=== PATIENT | male | born 1985 | race Caucasian/White ===

== ENCOUNTER 2024-12-24 10:29 | Observation (INO) | payer OTHER ==
--- NOTE | 2024-12-24 11:03 | ED ---
Chest Pain HPI - General Chief Complaint: Chest Pain Stated Complaint: CP Time Seen by Provider: 12/24/24 10:38 Source: patient, RN notes reviewed Mode of arrival: ambulatory Limitations: no limitations - History of Present Illness Initial Comments: 39-year-old male presents emergency department with chief complaint of chest discomfort. He states that started last night has worsened. Patient states that he just has deep uncomfortable pain in his central chest he denies any trauma denies anything that makes it feel better or feel worse. He does have extensive cardiac family history he denies any history of hypertension lipidemia, diabetes. Patient states he did travel to [place] a couple weeks ago but denies any leg pain leg swelling no history of DVT or PE. - Related Data Home Medications Medication Instructions Recorded Confirmed Lisdexamfetamine Dimesylate 40 mg PO DAILY 12/24/24 12/24/24 [Vyvanse] Semaglutide 5 mg SQ IGNACIO 12/24/24 12/24/24 Allergies Allergy/AdvReac Type Severity Reaction Status Date / Time No Known Allergies Allergy Verified 12/24/24 12:05 Review of Systems ROS Statement: Those systems with pertinent positive or pertinent negative responses have been documented in the HPI. ROS Other: All systems not noted in ROS Statement are negative. EKG Findings - EKG Comments: EKG Findings:: EKG performed at 10: 40 sinus rhythm rate of 65 SD 151 QRS 98 QT/QTc 382/393 inverted T wave in lead III noted - EKG Results: EKG: interpreted by ANGELA Past Medical History Past Medical History: Chest Pain / Angina Past Surgical History: Orthopedic Surgery Additional Past Surgical History / Comment(s): fusion from sacrum to L4, right knee surgery, left hand surgery, right shoulder, Past Psychological History: Depression Smoking Status: Current some day smoker, Former smoker Past Alcohol Use History: Occasional Past Drug Use History: None Reported General Exam Limitations: no limitations General appearance: alert, in no apparent distress Head exam: Present: atraumatic, normocephalic, normal inspection Eye exam: Present: normal appearance, PERRL, EOMI. Absent: scleral icterus, conjunctival injection, periorbital swelling ENT exam: Present: normal exam, normal oropharynx, mucous membranes moist Neck exam: Present: normal inspection, full ROM. Absent: tenderness, meningismus, lymphadenopathy Respiratory exam: Present: normal lung sounds bilaterally. Absent: respiratory distress, wheezes, rales, rhonchi, stridor Cardiovascular Exam: Present: regular rate, normal rhythm, normal heart sounds. Absent: systolic murmur, diastolic murmur, rubs, gallop, clicks Back exam: Present: normal inspection Neurological exam: Present: alert, oriented X3, CN II-XII intact, reflexes normal. Absent: motor sensory deficit Skin exam: Present: warm, dry, intact, normal color. Absent: rash Course Vital Signs 12/24/24 12/24/24 12/24/24 10:32 11:22 11:23 Temperature 98.0 F 98.7 F Pulse Rate 68 68 Pulse Rate [ 73 Layer Off ] Respiratory 18 16 Rate Blood Pressure 162/82 123/77 Blood Pressure [Right Arm Sitting] Blood Pressure [Right Arm Standing] Blood Pressure [Right Arm Supine] Blood Pressure [Right Arm] O2 Sat by Pulse 99 96 Oximetry 12/24/24 12/24/24 12/24/24 12:10 12:33 13:07 Temperature 98.5 F 98.4 F Pulse Rate 67 69 Pulse Rate [ 74 Layer Off ] Respiratory 16 16 18 Rate Blood Pressure 126/81 127/83 Blood Pressure 120/81 [Right Arm Sitting] Blood Pressure 124/85 [Right Arm Standing] Blood Pressure 121/84 [Right Arm Supine] Blood Pressure 121/84 [Right Arm] O2 Sat by Pulse 97 99 98 Oximetry Chest Pain MDM - MDM Was pt. sent in by a medical professional or institution (, PA, DOG CATCHER, urgent care, hospital, or [facility]...) When possible be specific @ -No Did you speak to anyone other than the patient for history (EMS, parent, family, police, friend...)? What history was obtained from this source @ -No Did you review nursing and triage notes (agree or disagree)? Why? @ -I reviewed and agree with nursing and triage notes Were old charts reviewed (outside hosp., previous admission, EMS record, old EKG, old radiological studies, urgent care reports/EKG's, [facility] records)? Report findings @ -No old charts were reviewed Differential Diagnosis (chest pain, altered mental status, abdominal pain women, abdominal pain men, vaginal bleeding, weakness, fever, dyspnea, syncope, headache, dizziness, GI bleed, back pain, seizure, CVA, palpatations, mental health, musculoskeletal)? @ -Differential Chest Pain: Stable Angina, Unstable Angina, STEMI, NSTEMI Aortic Dissection, Pneumothorax, Musculoskeletal, Esophageal Spasm GERD, Cholecystitis, Pancreatitis, Zoster, this is not meant to be an all-inclusive list. EKG interpreted by me (3pts min.). @ -As above X-rays interpreted by me (1pt min.). @ -Chest x-ray shows no acute cardiopulmonary process. CT interpreted by me (1pt min.). @ -CT angio of the chest negative for aortic dissection U/S interpreted by me (1pt. min.). @ -None done What testing was considered but not performed or refused? (CT, X-rays, U/S, labs)? Why? @ -None What meds were considered but not given or refused? Why? @ -None Did you discuss the management of the patient with other professionals (professionals i.e. , PA, DOG CATCHER, lab, RT, psych nurse, social science professor, heating plant superintendent, teacher, strategic intelligence officer, geriatric case manager)? Give summary @ -Dr. Rutledge for admission Was smoking cessation discussed for >3mins.? @ -No Was critical care preformed (if so, how long)? @ -No Were there social determinants of health that impacted care today? How? (Homelessness, low income, unemployed, alcoholism, drug addiction, transportation, low edu. Level, literacy, decrease access to med. care, penitentiary, rehab)? @ -No Was there de-escalation of care discussed even if they declined (Discuss DNR or withdrawal of care, Hospice)? DNR status @ -No What co-morbidities impacted this encounter? (DM, HTN, Smoking, COPD, CAD, Cancer, CVA, ARF, Chemo, Hep., AIDS, mental health diagnosis, sleep apnea, morbid obesity)? @ -cardiac Family history Was patient admitted / discharged? Hospital course, mention meds given and route, prescriptions, significant lab abnormalities, going to OR and other pertinent info. @ -Admitted patient had initial workup including labs EKG and chest x-ray acute findings CT was obtained no aortic dissection. Patient does have concerning cardiac symptoms. Patient will be admitted for cardiac rule out. Undiagnosed new problem with uncertain prognosis? @ -No Drug Therapy requiring intensive monitoring for toxicity (Heparin, Nitro, Insulin, Cardizem)? @ -No Were any procedures done? @ -No Diagnosis/symptom? @ -Chest pain Acute, or Chronic, or Acute on Chronic? @ -Acute Uncomplicated (without systemic symptoms) or Complicated (systemic symptoms)? @ -uncomplicated Side effects of treatment? @ -No Exacerbation, Progression, or Severe Exacerbation? @ -No Poses a threat to life or bodily function? How? (Chest pain, [place], [place], pneumonia, PE, COPD, DKA, ARF, appy, cholecystitis, CVA, Diverticulitis, Homicidal, Suicidal, threat to staff... and all critical care pts) @ -No Disposition Clinical Impression: Chest pain Disposition: ADMITTED IP TO THIS HOSP Condition: Stable Referrals: Lilly James MD [Primary Care Provider] - 1-2 days Time of Disposition: 13:52
[2024-12-24 11:20] LABS: Basophils % (A) 1 %; Eosinophils # (A) 0.2 k/uL (0-0.7); Eosinophils % (A) 2 %; HCT 45.4 % (39.0-53.0); HGB 15.9 gm/dL (13.0-17.5); Lymphocytes # (A) 2.8 k/uL (1.0-4.8); Lymphocytes % (A) 41 %; MCH 28.9 pg (25.0-35.0); MCHC 35.1 g/dL (31.0-37.0); MCV 82.5 fL (80.0-100.0); Mean Platelet Volume 6.6; Monocytes # (A) 0.5 k/uL (0-1.0); Monocytes % (A) 7 %; Neutrophils # (A) 3.3 k/uL (1.3-7.7); Neutrophils % (A) 48 %; Platelet Count 250 k/uL (150-450); RBC 5.49 m/uL (4.30-5.90); RDW 13.3 % (11.5-15.5); WBC 6.9 k/uL (3.8-10.6)
[2024-12-24] MEDS: ASPIRIN 81 MG PO STA (11:25)
--- NOTE | 2024-12-24 11:29 | XR ---
EXAMINATION TYPE: XR chest 2V DATE OF EXAM: 12/24/2024 11:22 AM COMPARISON: None TECHNIQUE: XR chest 2V Frontal and lateral views of the chest. CLINICAL INDICATION:Male, 39 years old with history of Chest Pain; FINDINGS: Lungs/Pleura: There is no evidence of pleural effusion, focal consolidation, or pneumothorax. Pulmonary vascularity: Unremarkable. Heart/mediastinum: Cardiomediastinal silhouette is unremarkable. Musculoskeletal: No acute osseous pathology. IMPRESSION: No acute cardiopulmonary disease/process. [facility], , 12/24/2024 11:26 AM
[2024-12-24 11:32] LABS: ALT 26 U/L (4-49); AST 25 U/L (17-59); African American GFR (CKD) >90 (>60 ml/min/1.73 sqM); Albumin 4.6 g/dL (3.5-5.0); Alkaline Phosphatase 70 U/L (38-126); Anion Gap 8 mmol/L; Blood Urea Nitrogen 22 mg/dL (9-20); Calcium 9.6 mg/dL (8.4-10.2); Carbon Dioxide 26 mmol/L (22-30); Chloride 104 mmol/L (98-107); Glucose 90 mg/dL (74-99); Magnesium 2.1 mg/dL (1.6-2.3); Non-African American GFR(CKD) >90 (>60 ml/min/1.73 sqM); Potassium 4.2 mmol/L (3.5-5.1); Sodium 138 mmol/L (137-145); Total Bilirubin 1.1 mg/dL (0.2-1.3); Total Protein 7.2 g/dL (6.3-8.2)
[2024-12-24 11:41] LABS: Partial Thromboplastin Time 24.6 sec (22.0-30.0)
[2024-12-24 13:07] VITALS: RESP 18
--- NOTE | 2024-12-24 13:18 | CT ---
EXAMINATION TYPE: CT angio thor/abd CT DLP: 1782.7 mGycm, Automated exposure control for dose reduction was used. DATE OF EXAM: 12/24/2024 12:53 PM COMPARISON: Chest radiograph 12/24/2024. CLINICAL INDICATION:Male, 39 years old with history of chest pain; PHH, Chest pain TECHNIQUE: Dissection protocol: Multiple axial CT images of the chest and abdomen were obtained prior and to the administration of IV contrast. 3-D reformats and maximum intensity projection format were performed on a separate workstation. Then the abdomen was scanned after administration of 100 cc of Isovue 370 IV contrast. FINDINGS: ARTERIAL VASCULATURE: The thoracic abdominal aorta are normal in course and caliber. There is no evid ence of aortic dissection, aneurysm or acute aortic injury. No atherosclerotic disease identified. Gr eat arch vessels patent and normal in course and caliber. The bilateral single renal arteries, celiac axis, SMA, and NAMITA are widely patent. Visualized portions of the bilateral common iliac arteries are widely patent. PULMONARY ARTERIAL VASCULATURE: Normal caliber. No evidence of filling defect to suggest pulmonary em bolus. Lungs/pleura: No pleural effusion or focal consolidation. No pneumothorax. Mild bilateral lower lobe dependent subsegmental atelectasis. Heart: Within normal limits. No pericardial effusion. Mediastinum: No gross evidence of adenopathy. Lower Neck: No significant findings. Soft tissues: Mild bilateral gynecomastia. Abdomen: Liver: Unremarkable. Gallbladder and Bile ducts: Unremarkable. Pancreas: Unremarkable. Spleen: Unremarkable. Adrenal glands: Unremarkable. Kidneys and Ureters: No hydronephrosis or nephrolithiasis. The kidneys enhance symmetrically. Right r enal lower pole cortical 1.7 cm cyst. Stomach and Bowel: Unremarkable. The visualized portion of the appendix is within normal limits. No e vidence of bowel obstruction. Peritoneum: No evidence of pneumoperitoneum, free fluid, or adenopathy. Abdominal wall/soft tissues: Unremarkable. Musculoskeletal: The osseous structures appear intact. Postsurgical changes of the from posterior fus ion involving L4-S1 level with bilateral pedicle screws and rods with disc spacers. IMPRESSION: No evidence for aortic dissection or acute process. [facility], , 12/24/2024 1:15 PM
[2024-12-24] MEDS ORDERED: NITROGLYCERIN SL TABS 0.4 MG TAB SUBLINGUAL PRN (13:52)
[2024-12-24 14:46] VITALS: BP 137/88; PULSE 69; TEMP 98.5
[2024-12-25] MEDS ORDERED: ASPIRIN 325 MG TAB PO SCH (09:00)
== END 2024-12-24 14:45 | disposition left against medical advice (07) ==
LOC: EC 10:29 → 6NMEDSUR 14:29
PROVIDERS: ADMIT Hospitalist; ATTEND Hospitalist
DX: R07.89 Other chest pain (principal); F17.200 Nicotine dependence, unspecified, uncomplicated; Z53.29 Procedure and treatment not carried out because of patient's decision for other reasons
CPT/HCPCS: 99285; 36415; 93005; 85379; 80053; 83735; 84484; 85025; 85610; 85730; 71046; 71275; 74175; Q9967